=== PATIENT | female | born 1995 | race Caucasian/White ===

== ENCOUNTER 2017-06-03 21:25 | Emergency (ER) | payer BC ==
[2017-06-03] MEDS ORDERED: Benzocaine 20% Topical Spray UD MUCMEM ONE (21:51)
[2017-06-03] MEDS ORDERED: Lidocaine 2% Viscous Solution 15 ML Cup PO ONE (21:51)
--- NOTE | 2017-06-03 21:51 | EDM.PDOC ---
ED HPI GENERAL MEDICAL PROBLEM - General Chief Complaint: ENT Problem Stated Complaint: TOOTH PAIN Time Seen by Provider: 06/03/17 21:40 Source of Information: Reports: Patient History Limitations: Reports: No Limitations - History of Present Illness INITIAL COMMENTS - FREE TEXT/NARRATIVE: HISTORY AND PHYSICAL: History of present illness: [Patient comes to the emergency room complaining of pain to tooth #16. Has a history of multiple fillings to this tooth which have always fallen off. Over the past week she's developed pain to the gums surrounding this tooth, increased to sensitivity to heat and cold, and pain shooting into her left ear and cheek. She has not had any pain relief with Tylenol or ibuprofen. She is scheduled to see a dentist in [place] on June 09. She is 12 weeks . No fever or chills. She has not had any recent illness or infection. No runny nose sore throat or cough. No abdominal pain, nausea or vomiting. She has no other complaints or concerns at this time. Review of systems: As per history of present illness and below otherwise all systems reviewed and negative. Past medical history: As per history of present illness and as reviewed below otherwise noncontributory. Surgical history: As per history of present illness and as reviewed below otherwise noncontributory. Social history: No reported history of drug or alcohol abuse. Family history: As per history of present illness and as reviewed below otherwise noncontributory. Physical exam: HEENT: Atraumatic, normocephalic. TMs are pearly mata and without erythema bilaterally. PERRLA. Nares are clear. Oral mucous membranes are pink and moist. No tonsillar swelling erythema or exudate. Tooth #16 shows no fillings. Decay and plaque present to all teeth. Surrounding gums and soft tissue are erythematous and tender with palpation. She is tender with palpation over her left cheek and mormonism. Lungs: Clear to auscultation, breath sounds equal bilaterally. Heart: S1S2, regular rate and rhythm. Genitourinary: Deferred. Rectal: Deferred. Extremities: Atraumatic. Neurovascular unremarkable. Neuro: Awake, alert, oriented. Motor and sensory unremarkable throughout. Exam nonfocal. Impression: Dental abscess Dental pain] Plan: [Dental balls given to patient. Amoxicillin 500 mg #21 sig 1 by mouth 3 times a day 7 days 0 refills. Follow-up is scheduled with dentist later this week. All questions are answered and concerns are addressed. Patient is in agreement with today's plan.] Definitive disposition and diagnosis as appropriate pending reevaluation and review of above. dental pain Pain Score (Numeric/FACES): 6 - Related Data Allergies Allergy/AdvReac Type Severity Reaction Status Date / Time latex Allergy Rash Verified 06/03/17 21:35 Home Meds: Home Meds Vit No.129/Iron/FA [ One Daily Tablet] 1 tab PO DAILY 06/03/17 [History] Past Medical History HEENT History: Reports: None Cardiovascular History: Reports: None Respiratory History: Reports: None Gastrointestinal History: Reports: None Genitourinary History: Reports: None CULINARY CHEF History: Reports: Musculoskeletal History: Reports: None Neurological History: Reports: None Psychiatric History: Reports: None Endocrine/Metabolic History: Reports: None Hematologic History: Reports: None Immunologic History: Reports: None Oncologic (Cancer) History: Reports: None Dermatologic History: Reports: None - Infectious Disease History Infectious Disease History: Reports: Chicken Pox - Past Surgical History Head Surgeries/Procedures: Reports: None Female Surgical History: Reports: Section Neurological Surgical History: Reports: Other (See Below) Other Neurological Surgeries/Procedures: spinal sx Social & Family History - Family History Family Medical History: Noncontributory - Tobacco Use Smoking Status *Q: Current Every Day Smoker Years of Tobacco use: 4 Packs/Tins Daily: 0.5 - Caffeine Use Caffeine Use: Reports: Coffee, Soda - Recreational Drug Use Recreational Drug Use: No ED ROS ENT - Review of Systems Review Of Systems: ROS reveals no pertinent complaints other than HPI. ED EXAM, ENT - Physical Exam Exam: See Below Course - Vital Signs Last Recorded V/S: Last Vital Signs Temp 97 F 06/03/17 21:35 Pulse 85 06/03/17 22:00 Resp 18 06/03/17 22:00 BP 119/67 06/03/17 22:00 Pulse Ox 97 06/03/17 22:00 - Orders/Labs/Meds Meds: Medications Discontinued Medications Generic Name Dose Route Start Last Admin Trade Name Freq PRN Reason Stop Dose Admin Benzocaine 2 each 06/03/17 21:51 06/03/17 22:03 Hurricaine One 20% MUCMEM 06/03/17 21:52 2 each ONETIME ONE Administration Lidocaine HCl 15 ml 06/03/17 21:51 06/03/17 22:03 Xylocaine 2% Viscous PO 06/03/17 21:52 15 ml ONETIME ONE Administration Departure - Departure Time of Disposition: 22:00 Disposition: Home, Self-Care 01 Condition: Good Clinical Impression: Pain, dental - Discharge Information Instructions: Dental Care and Dentist Visits, Dental Caries Referrals: Marilin Vyas MD [Primary Care Provider] - Forms: ED Department Discharge Additional Instructions: The following information is given to patients seen in the emergency department who are being discharged to home. This information is to outline your options for follow-up care. We provide all patients seen in our emergency department with a follow-up referral. The need for follow-up, as well as the timing and circumstances, are variable depending upon the specifics of your emergency department visit. If you don't have a primary care physician on staff, we will provide you with a referral. We always advise you to contact your personal physician following an emergency department visit to inform them of the circumstance of the visit and for follow-up with them and/or the need for any referrals to a consulting specialist. The emergency department will also refer you to a specialist when appropriate. This referral assures that you have the opportunity for follow-up care with a specialist. All of these measure are taken in an effort to provide you with optimal care, which includes your follow-up. Under all circumstances we always encourage you to contact your private physician who remains a resource for coordinating your care. When calling for follow-up care, please make the office aware that this follow-up is from your recent emergency room visit. If for any reason you are refused follow-up, please contact the [facility] emergency department at and asked to speak to the emergency department charge nurse. [facility] [address] [place] [id number] Follow-up with dentist as you have scheduled for later this week. Use dental balls as prescribed. Take antibiotics as prescribed. Return to ER as needed as discussed.
== END 2017-06-03 22:05 | disposition home or self-care (01) ==
LOC: MW.ED 21:25
DX: K04.7 Periapical abscess without sinus (principal); Z91.040 Latex allergy status
CPT/HCPCS: 99282; A9270

== ENCOUNTER 2017-12-13 05:14 | Inpatient (IN) | payer BC ==
[2017-12-13] MEDS ORDERED: Water For Irrigation,Sterile 1,000 ML Container IRR PRN (05:38)
[2017-12-13] MEDS ORDERED: Sodium Chloride 0.9% 10 ML Syringe FLUSH PRN (05:38)
[2017-12-13] MEDS ORDERED: Carboprost Tromethamine 250 MCG/1 ML Amp IM PRN (05:38)
[2017-12-13] MEDS ORDERED: Tranexamic Acid 1,000 MG in Sodium Chloride 0.9% 100 ML IV PRN (05:38)
[2017-12-13] MEDS ORDERED: Misoprostol 200 MCG Tab PO PRN (05:38)
[2017-12-13] MEDS ORDERED: Methylergonovine 0.2 MG/1 ML Amp IM PRN (05:38)
[2017-12-13] MEDS ORDERED: Sodium Chloride 0.9% 2.5 ML Syringe FLUSH PRN (05:38)
[2017-12-13] MEDS ORDERED: Lactated Ringers 1,000 ML IV SCH ×3 (05:45→09:00)
[2017-12-13] MEDS ORDERED: Oxytocin/0.9 % Sodium Chloride 30 UNIT/500 ML BAG IV SCH (05:45)
[2017-12-13] MEDS ORDERED: Oxytocin/0.9 % Sodium Chloride 30 UNIT/500 ML BAG ONE (07:17)
--- NOTE | 2017-12-13 07:28 | PCM.PREANE ---
Preanesthetic Assessment - Anesthesia/Transfusion/Family Hx Anesthesia History: Prior Anesthesia Without Reaction (prior [place] for d/ t thrombocytopenia) Family History of Anesthesia Reaction: No Transfusion History: Prior Transfusion Without Reaction Intubation History: Unknown - Review of Systems General: No Symptoms Pulmonary: No Symptoms Cardiovascular: No Symptoms Gastrointestinal: Other (GERD - pt states is bad this AM, will use bicitra prior to surgery) Neurological: No Symptoms Other: Reports: None - Physical Assessment NPO Status Date: 12/13/17 NPO Status Time: 00:00 Blood Pressure: 105/53 Height: 5 ft 1 in Weight: 180 lb ASA Class: 2 Thyro-Mental Finger Breadths: 3 Mouth Opening Finger Breadths: 2 ROM/Head Extension: Full Lungs: Clear to Auscultation, Normal Respiratory Effort Cardiovascular: Regular Rate, Regular Rhythm - Lab Values: Laboratory Last Values WBC 12.14 K/uL (4.0-11.0) H 12/12/17 12:25 RBC 3.96 M/uL (4.30-5.90) L 12/12/17 12:25 Hgb 11.6 g/dL (12.0-16.0) L 12/12/17 12:25 Hct 34.8 % (36.0-46.0) L 12/12/17 12:25 MCV 87.9 fL (80.0-98.0) 12/12/17 12:25 MCH 29.3 pg (27.0-32.0) 12/12/17 12:25 MCHC 33.3 g/dL (31.0-37.0) 12/12/17 12:25 RDW Std Deviation 48.8 fl (28.0-62.0) 12/12/17 12:25 RDW Coeff of Lyndsay 16 % (11.0-15.0) H 12/12/17 12:25 Plt Count 240 K/uL (150-400) 12/12/17 12:25 MPV 10.40 fL (7.40-12.00) 12/12/17 12:25 Nucleated RBC % 0.0 /100WBC 12/12/17 12:25 Nucleated RBCs # 0 K/uL 12/12/17 12:25 Blood Type O POSITIVE 12/12/17 12:25 Antibody Screen NEGATIVE 12/12/17 12:25 - Allergies Allergies/Adverse Reactions: Allergies Allergy/AdvReac Type Severity Reaction Status Date / Time latex Allergy Rash Verified 12/08/17 08:14 - Blood Blood Available: No Product(s) Available: None (pt T&S) - Anesthesia Plan Free Text/Narrative:: Plan to attempt SAB, but pt understands that d/t her hardware at L5-tailbone that she states has "fallen apart" and needs to be redone after . Pt understands that she may have to go to sleep if unable to obtain spinal, or it isn't effective. Pre-Op Medication Ordered: Antacids - Acknowledgements Anesthesia Type Planned: Spinal (with backup GA) Pt an Appropriate Candidate for the Planned Anesthesia: Yes Alternatives and Risks of Anesthesia Discussed w Pt/Guardian: Yes Pt/Guardian Understands and Agrees with Anesthesia Plan: Yes PreAnesthesia Questionnaire - Past Health History Medical/Surgical History: Denies Medical/Surgical History HEENT History: Reports: None Cardiovascular History: Reports: None Respiratory History: Reports: None Gastrointestinal History: Reports: Other (See Below) Other Gastrointestinal History: heartburn during - pt states is "bad" this AM Genitourinary History: Reports: None [employer]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 History: Reports: Musculoskeletal History: Reports: Back Pain, Chronic (had back pain since she was in 3rd grade and finally had hardware placed L5-Sacrum in 2013 which she said helped, but has now "fallen apart" and needs to be redone) Neurological History: Reports: None Psychiatric History: Reports: None Endocrine/Metabolic History: Reports: None Hematologic History: Reports: Idiopathic Thrombocytopenia (with last ) , Other (See Below) Other Hematologic History: states had platelet infusion 2 yrs ago after 1st C/ Section Immunologic History: Reports: None Oncologic (Cancer) History: Reports: None Dermatologic History: Reports: None - Infectious Disease History Infectious Disease History: Reports: Chicken Pox - Past Surgical History Head Surgeries/Procedures: Reports: None Female Surgical History: Reports: Section (under [place] d/t thrombocytopenia) Neurological Surgical History: Reports: Lumbar Spine, Other (See Below) Other Neurological Surgeries/Procedures: hx back surgery - SUBSTANCE USE Smoking Status *Q: Current Every Day Smoker Tobacco Use Within Last Twelve Months: Cigarettes Recreational Drug Use History: No - HOME MEDS Home Medications: Home Meds Vit No.129/Iron/FA [ One Daily Tablet] 1 tab PO DAILY 06/03/17 [History] - CURRENT (IN HOUSE) MEDS Current Meds: Current Medications Carboprost Tromethamine (Hemabate Ds) 250 mcg IM ASDIRECTED PRN PRN Reason: Post Hemorrhage Citric Acid/Sodium Citrate (Bicitra Solution) 30 ml PO .ONCE ROBIN Cefazolin Sodium/Dextrose 2 gm (/ Premix) 50 mls @ 100 mls/hr IV ONETIME ONE Stop: 12/13/17 07:59 Lactated Ringer's (Ringers, Lactated) 1,000 mls @ 500 mls/hr IV .BOLUS ROBIN Last Admin: 12/13/17 05:54 Dose: 500 mls/hr Lactated Ringer's (Ringers, Lactated) 1,000 mls @ 150 mls/hr IV ASDIRECTED ROBIN Oxytocin/Sodium Chloride (Oxytocin 30 Unit/500 Ml-Ns) 30 unit in 500 mls @ 250 mls/hr IV TITRATE ROBIN Tranexamic Acid 1,000 mg/ (Sodium Chloride) 110 mls @ 660 mls/hr IV ONETIME PRN PRN Reason: Bleeding Methylergonovine Maleate (Methergine) 0.2 mg IM ASDIRECTED PRN PRN Reason: Post Hemorrhage Misoprostol (Cytotec) 200 mcg PO .ONCE PRN PRN Reason: Post Hemorrhage Sodium Chloride (Saline Flush) 10 ml FLUSH ASDIRECTED PRN PRN Reason: Keep Vein Open Sodium Chloride (Saline Flush) 2.5 ml FLUSH ASDIRECTED PRN PRN Reason: Keep Vein Open Sterile Water (Sterile Water For Irrigation) 1,000 ml IRR ASDIRECTED PRN PRN Reason: delivery Discontinued Medications Oxytocin/Sodium Chloride (Oxytocin 30 Unit/500 Ml-Ns) Confirm Administered Dose 30 unit in 500 mls @ as directed .ROUTE .STK-MED ONE Stop: 12/13/17 07:18
[2017-12-13] MEDS ORDERED: ceFAZolin 2 GM in Premix Bag 1 BAG IV ONE (07:30)
[2017-12-13] MEDS ORDERED: Citric Acid/Sodium Citrate Solution 30 ML Cup PO SCH (07:30)
[2017-12-13] MEDS ORDERED: ePHEDrine 50 MG/ML SDV ONE (07:36)
[2017-12-13] MEDS ORDERED: Morphine PF 1 MG/ML Amp ONE (07:36)
[2017-12-13] MEDS ORDERED: ceFAZolin/Dextrose,Iso-Osmotic 2 GM/50 ML Duplex Bag IV ONE (07:36)
[2017-12-13] MEDS ORDERED: Ondansetron 4 MG/2 ML SDV ONE (08:31)
[2017-12-13] MEDS ORDERED: Phenylephrine/Normal Saline 100 MCG/ML 10 ML Syringe ONE (08:45)
[2017-12-13] MEDS ORDERED: Octyl 2-Cyanoacrylate 1 Tube ONE (08:48)
[2017-12-13] MEDS ORDERED: Acetaminophen/oxyCODONE 325-5 MG Tab PO PRN ×2 (08:56→09:08)
[2017-12-13] MEDS ORDERED: Ondansetron 4 MG/2 ML SDV IV PRN (08:56)
[2017-12-13] MEDS ORDERED: Bisacodyl 10 MG Supp RECTAL PRN (08:56)
[2017-12-13] MEDS ORDERED: Lanolin 100% Cream 7 GM Tube TOP PRN (08:56)
[2017-12-13] MEDS ORDERED: diphenhydrAMINE 50 MG/ML SDV IVPUSH PRN (08:56)
--- NOTE | 2017-12-13 09:04 | PCM.OPNOTE ---
- General Post-Op/Procedure Note Date of Surgery/Procedure: 12/13/17 Operative Procedure(s): Repeat LTCS Findings: Term female APGARs 8, 9 weight 3450 gm. Intact placenta with 3V cord Pre Op Diagnosis: 39 week IUP. Previous c section, desires repeat Post-Op Diagnosis: Same Anesthesia Technique: Spinal Primary Surgeon: Marilin Vyas Fluid Replacement, Intraop: 2,000 EBL in mLs: 400 Complications: none known Condition: Good Free Text/Narrative:: Dictation [id number]
[2017-12-13] MEDS ORDERED: Nalbuphine 10 MG/ML 10 ML MDV IVPUSH PRN (09:08)
[2017-12-13] MEDS ORDERED: Naloxone 0.4 MG/ML Syringe IVPUSH PRN (09:08)
[2017-12-13] MEDS: Ketorolac 30 MG/ML SDV IVPUSH SCH ×3 (09:21→20:38)
--- NOTE | 2017-12-13 10:10 | PCM.POSTAN ---
POST ANESTHESIA ASSESSMENT - MENTAL STATUS Mental Status: Alert, Oriented - RESPIRATORY Respiratory Status: Respiratory Rate WNL, Airway Patent, O2 Saturation Stable - CARDIOVASCULAR CV Status: Pulse Rate WNL, Blood Pressure Stable - GASTROINTESTINAL GI Status: No Symptoms - POST OP HYDRATION Hydration Status: Adequate & Stable - OBSERVATIONS Free Text/Narrative:: sensory level t12
[2017-12-13] MEDS: Docusate Sodium 100 MG Cap PO SCH ×2 (10:29→20:38)
--- NOTE | 2017-12-13 13:37 | OR ---
SURGEON: Marilin Vyas M.D. DATE OF PROCEDURE: 12/13/2017 PREOPERATIVE DIAGNOSES: 1. 39-week intrauterine . 2. Previous section, desires repeat. POSTOPERATIVE DIAGNOSES: 1. 39-week intrauterine . 2. Previous section, desires repeat. PROCEDURE: Repeat low-transverse section. ESTIMATED BLOOD LOSS: 400 mL. ANESTHESIA: Spinal. FLUIDS: 2000 mL of crystalloid. COMPLICATIONS: None. FINDINGS: Viable female, score 8 at 1 minute and 9 at 5 minutes, weight is 3450 g. Spontaneous delivery, intact placenta with three-vessel cord. Normal-appearing pelvis. DISPOSITION: The patient to PACU. to nursery, stable. PROCEDURE IN DETAIL: The patient is a 22-year-old G2, P1, at 39 weeks gestation, who presents for scheduled repeat delivery. Risks of the procedure have been discussed and proper consent obtained. The patient was taken to the operating where she underwent spinal anesthetic, was placed in the supine position with leftward tilt. SCDs to lower extremities. [place] to gravity. She was prepped and draped in the usual sterile fashion. Received Ancef prophylactically. Time-out was performed. Anesthesia was tested found to be adequate. Previous Pfannenstiel scar was now excised. Subcutaneous tissue was incised down to the level of the fascia, which was incised in midline, lateralized on either side sharply and bluntly. The superior aspect of fascia was tented upward, dissected sharply and bluntly away from underlying muscle. In the similar aspect, performed with inferior aspect of fascia. Rectus muscles were in midline. Peritoneum was entered sharply. Rectus muscles and peritoneum were now lateralized bluntly. Uterine position and position were palpated. Self-retaining retractor was gently placed. Uterovesical reflection was visualized and the bladder flap was created sharply and bluntly. Bladder was mobilized away from lower uterine segment. Low transverse hysterotomy was now performed. Uterine cavity was entered with a blunt end scalpel. Clear fluid was returned with amniotomy. The 's head was flexed, delivered from the pelvis. Fundal pressure was applied. The infant's head was delivered followed by anterior shoulder, posterior shoulder, and remaining body without difficulty. Nuchal cord x1 was reduced manually. The 's oropharynx and nares were bulb suctioned. Cord was clamped x2 and cut. was handed off to attending nursing staff. Cord arterial, cord venous, cord blood samples obtained. The placenta was now delivered. Uterine cavity was cleared of all clot and debris. The hysterotomy was repaired using 0 Vicryl in continuous running locked fashion followed by a re-imbricating layer. Any areas of oozing were cauterized. Posterior aspect of uterus inspected, no defects or hematomas found to be forming. Regions were well irrigated and suction dried. Uterus was returned to the abdominal cavity. Colonic gutters were cleared of all clot and debris, well irrigated and suction dried. Hysterotomy was again inspected and found to be hemostatic. Rectus muscles were reapproximated using 0 Vicryl in inverted mattress suture technique. Anterior aspect of the muscle, posterior aspect of the fascia were closely inspected. Any areas of oozing were cauterized. The rectus fascia was reapproximated using 0 Vicryl in continuous running fashion beginning laterally and tied in the midline. Subcutaneous tissue was well irrigated and suction dried. Any areas of oozing were cauterized. The skin edges were reapproximated using 3-0 Vicryl in a Josue needle in subcuticular fashion followed by Dermabond. Sponge, instrument, needle counts were correct x2. The uterus remained firm. Hemostasis evident. The patient will go to PACU in stable condition. Infant to nursery. BALAJI / ROGER /[id number]
[2017-12-14] MEDS: Ketorolac 30 MG/ML SDV IVPUSH SCH ×2 (02:44→09:18)
--- NOTE | 2017-12-14 06:08 | PCM.SURGPN ---
- General Info Date of Service: 12/14/17 POD#: 1 Functional Status: Reports: Pain Controlled, Tolerating Diet, Ambulating, Urinating - Review of Systems General: Denies: Fever, Weakness Pulmonary: Denies: Shortness of Breath Cardiovascular: Denies: Chest Pain, Palpitations, Lightheadedness Gastrointestinal: Denies: Abdominal Pain, Nausea, Vomiting Genitourinary: Denies: Flank Pain Psychiatric: Reports: No Symptoms - Patient Data Vitals - Most Recent: Last Vital Signs Temp 36.6 C 12/14/17 05:00 Pulse 102 H 12/14/17 05:00 Resp 18 12/14/17 05:00 BP 106/52 L 12/14/17 05:00 Pulse Ox 96 12/14/17 05:00 Weight - Most Recent: 81.647 kg I&O - Last 24 Hours: Intake & Output 12/13/17 12/13/17 12/14/17 14:59 22:59 06:59 Intake Total 4600 1721 1500 Output Total 335 1200 2120 Balance 4265 521 -620 Lab Results Last 24 Hrs: Laboratory Results - last 24 hr 12/13/17 12/14/17 Range/Units 08:25 04:53 Hgb 10.2 L (12.0-16.0) g/dL Hct 31.5 L (36.0-46.0) % Cord ABG pH 7.267 (7.18-7.38) Cord ABG Base Excess -3 (-10--2) Cord VBG pH 7.355 (7.25-7.45) Cord VBG Base Excess -3 (-10--2) Med Orders - Current: Current Medications Bisacodyl (Dulcolax) 10 mg RECTAL .ONCE PRN PRN Reason: Constipation Carboprost Tromethamine (Hemabate Ds) 250 mcg IM ASDIRECTED PRN PRN Reason: Post Hemorrhage Citric Acid/Sodium Citrate (Bicitra Solution) 30 ml PO .ONCE ROBIN Diphenhydramine HCl (Benadryl) 25 mg IVPUSH Q6H PRN PRN Reason: Itching or Nausea Docusate Sodium (Colace) 100 mg PO BID ROBIN Last Admin: 12/13/17 20:38 Dose: 100 mg Emollient Ointment (Lansinoh Hpa) 0 gm TOP ASDIRECTED PRN PRN Reason: Sore Nipples Lactated Ringer's (Ringers, Lactated) 1,000 mls @ 500 mls/hr IV .BOLUS [facility] Last Admin: 12/13/17 05:54 Dose: 500 mls/hr Lactated Ringer's (Ringers, Lactated) 1,000 mls @ 150 mls/hr IV ASDIRECTED [facility] Oxytocin/Sodium Chloride (Oxytocin 30 Unit/500 Ml-Ns) 30 unit in 500 mls @ 250 mls/hr IV TITRATE [facility] Tranexamic Acid 1,000 mg/ (Sodium Chloride) 110 mls @ 660 mls/hr IV ONETIME PRN PRN Reason: Bleeding Lactated Ringer's (Ringers, Lactated) 1,000 mls @ 125 mls/hr IV ASDIRECTED [facility] Ibuprofen (Motrin) 800 mg PO Q8H PRN PRN Reason: mild pain or fever Ketorolac Tromethamine (Toradol) 30 mg IVPUSH Q6H [facility] Stop: 12/14/17 09:01 Last Admin: 12/14/17 02:44 Dose: 30 mg Methylergonovine Maleate (Methergine) 0.2 mg IM ASDIRECTED PRN PRN Reason: Post Hemorrhage Misoprostol (Cytotec) 200 mcg PO .ONCE PRN PRN Reason: Post Hemorrhage Nalbuphine HCl (Nubain) 2.5 mg IVPUSH Q3H PRN PRN Reason: Pruritis Stop: 12/14/17 09:09 Last Admin: 12/13/17 10:25 Dose: 2.5 mg Naloxone HCl (Narcan) 0.1 mg IVPUSH ONETIME PRN PRN Reason: RR<6 WITH STIMULATION Stop: 12/14/17 09:09 Ondansetron HCl (Zofran) 4 mg IV Q4H PRN PRN Reason: Nausea/Vomiting Oxycodone/Acetaminophen (Percocet 325-5 Mg) 1 tab PO Q4H PRN PRN Reason: Pain (moderate 4-6) Oxycodone/Acetaminophen (Percocet 325-5 Mg) 2 tab PO Q4H PRN PRN Reason: Pain (moderate 4-6) Oxycodone/Acetaminophen (Percocet 325-5 Mg) 1 tab PO .Q4HRS PRN PRN Reason: Breakthrough Pain Sodium Chloride (Saline Flush) 10 ml FLUSH ASDIRECTED PRN PRN Reason: Keep Vein Open Sodium Chloride (Saline Flush) 2.5 ml FLUSH ASDIRECTED PRN PRN Reason: Keep Vein Open Sterile Water (Sterile Water For Irrigation) 1,000 ml IRR ASDIRECTED PRN PRN Reason: delivery Discontinued Medications Cefazolin Sodium/Dextrose (Ancef) Confirm Administered Dose 2 gm IV .STK-MED ONE Stop: 12/13/17 07:37 Ephedrine Sulfate (Ephedrine Sulfate) Confirm Administered Dose 50 mg .ROUTE .STK-MED ONE Stop: 12/13/17 07:37 Cefazolin Sodium/Dextrose 2 gm (/ Premix) 50 mls @ 100 mls/hr IV ONETIME ONE Stop: 12/13/17 07:59 Last Admin: 12/13/17 10:28 Dose: Not Given Oxytocin/Sodium Chloride (Oxytocin 30 Unit/500 Ml-Ns) Confirm Administered Dose 30 unit in 500 mls @ as directed .ROUTE .STK-MED ONE Stop: 12/13/17 07:18 Last Admin: 12/13/17 10:28 Dose: Not Given Morphine Sulfate (Duramorph Pf) Confirm Administered Dose 1 mg .ROUTE .STK-MED ONE Stop: 12/13/17 07:37 Octyl Cyanoacrylate (Dermabond Advance) Confirm Administered Dose 1 applic .ROUTE .STK-MED ONE Stop: 12/13/17 08:49 Ondansetron HCl (Zofran) Confirm Administered Dose 4 mg .ROUTE .STK-MED ONE Stop: 12/13/17 08:32 Phenylephrine HCl (Phenylephrine In Ns 100 Mcg/Ml) Confirm Administered Dose 1 mg .ROUTE .STK-MED ONE Stop: 12/13/17 08:46 - Exam Wound/Incisions: Healing Well, No Drainage. No: Erythema General: Alert, Oriented Lungs: Normal Respiratory Effort Cardiovascular: Regular Rate, Regular Rhythm GI/Abdominal Exam: Normal Bowel Sounds, Soft Extremities: Pedal Edema (trace). No: Israel's Sign Skin: Warm, Dry, Intact Psy/Mental Status: Alert, Normal Affect - Problem List Review Problem List Initiated/Reviewed/Updated: Yes - My Orders Last 24 Hours: Active Orders 24 hr Category Date Time Status Patient Status [ADT] Routine ADT 12/13/17 05:38 Active Patient Status [ADT] Routine ADT 12/13/17 05:38 Active Patient Status [ADT] Routine ADT 12/13/17 08:56 Active Ambulate [RC] PER UNIT ROUTINE Care 12/13/17 08:56 Active Bradycardia-Neuroaxis [employer] [RC] ROUTINE Care 12/13/17 09:08 Active Communication Order [RC] PER UNIT ROUTINE Care 12/13/17 08:56 Active Communication Order [RC] PER UNIT ROUTINE Care 12/13/17 08:56 Active Communication Order [RC] Per Unit Routine Care 12/13/17 08:56 Active Hypertension-Neuroaxis [employer] [RC] ROUTINE Care 12/13/17 09:08 Active Hypotension-Neuroaxis [employer] [RC] ROUTINE Care 12/13/17 09:08 Active May Shower [RC] ASDIRECTED Care 12/13/17 08:56 Active Notify Provider Intake and Out [RC] ASDIRECTED Care 12/13/17 08:56 Active Notify Provider Vital Signs [RC] ASDIRECTED Care 12/13/17 08:56 Active Notify Provider Vital Signs [RC] PRN Care 12/13/17 05:38 Active Notify Provider [RC] PRN Care 12/13/17 05:38 Active Oxygen Therapy [RC] PER UNIT ROUTINE Care 12/13/17 09:08 Active RT Incentive Spirometry [RC] Q2HWA Care 12/13/17 08:56 Active Up ad Naina [RC] ASDIRECTED Care 12/13/17 05:38 Active Vital Signs [RC] PER UNIT ROUTINE Care 12/13/17 08:56 Active Vital Signs [RC] Q1H Care 12/13/17 09:08 Active Regular Diet [DIET] Diet 12/13/17 Dinner Active Acetaminophen/oxyCODONE [Percocet 325-5 MG] Med 12/13/17 09:08 Active 1 tab PO .Q4HRS PRN Acetaminophen/oxyCODONE [Percocet 325-5 MG] Med 12/13/17 08:56 Active 1 tab PO Q4H PRN Acetaminophen/oxyCODONE [Percocet 325-5 MG] Med 12/13/17 08:56 Active 2 tab PO Q4H PRN Bisacodyl [Dulcolax] Med 12/13/17 08:56 Active 10 mg RECTAL .ONCE PRN Carboprost Tromethamine [Hemabate DS] Med 12/13/17 05:38 Active 250 mcg IM ASDIRECTED PRN Citric Acid/Sodium Citrate [Bicitra Solution] Med 12/13/17 07:30 Active 30 ml PO .ONCE Docusate Sodium [Colace] Med 12/13/17 09:00 Active 100 mg PO BID Ibuprofen [Motrin] Med 12/13/17 08:56 Active 800 mg PO Q8H PRN Ketorolac [Toradol] Med 12/13/17 09:00 Active 30 mg IVPUSH Q6H Lactated Ringers [Ringers, Lactated] 1,000 ml Med 12/13/17 05:45 Active IV .BOLUS Lactated Ringers [Ringers, Lactated] 1,000 ml Med 12/13/17 05:45 Active IV ASDIRECTED Lactated Ringers [Ringers, Lactated] 1,000 ml Med 12/13/17 09:00 Active IV ASDIRECTED Lanolin [Lansinoh HPA] Med 12/13/17 08:56 Active See Dose Instructions TOP ASDIRECTED PRN Methylergonovine [Methergine] Med 12/13/17 05:38 Active 0.2 mg IM ASDIRECTED PRN Misoprostol [Cytotec] Med 12/13/17 05:38 Active 200 mcg PO .ONCE PRN Nalbuphine [Nubain] Med 12/13/17 09:08 Active 2.5 mg IVPUSH Q3H PRN Naloxone [Narcan] Med 12/13/17 09:08 Active 0.1 mg IVPUSH ONETIME PRN Ondansetron [Zofran] Med 12/13/17 08:56 Active 4 mg IV Q4H PRN Oxytocin/0.9 % Sodium Chloride [Oxytocin 30 Unit/500 ML Med 12/13/17 05:45 Active -NS] 30 unit in 500 ml IV TITRATE Sodium Chloride 0.9% [Saline Flush] Med 12/13/17 05:38 Active 10 ml FLUSH ASDIRECTED PRN Sodium Chloride 0.9% [Saline Flush] Med 12/13/17 05:38 Active 2.5 ml FLUSH ASDIRECTED PRN Tranexamic Acid [Cyklokapron] 1,000 mg Med 12/13/17 05:38 Active Sodium Chloride 0.9% [Normal Saline] 100 ml IV ONETIME Water For Irrigation,Sterile [Sterile Water for Med 12/13/17 05:38 Active Irrigation] 1,000 ml IRR ASDIRECTED PRN diphenhydrAMINE [Benadryl] Med 12/13/17 08:56 Active 25 mg IVPUSH Q6H PRN AN Neuroaxis [employer] Precaution Reflex [OM.PC] PER Ot 12/13/17 09:15 Ordered UNIT ROUTINE AN Neuroaxis [employer] Precaution Reflex [OM.PC] PER Ot 12/14/17 09:15 Ordered UNIT ROUTINE Abdominal Binder [OM.PC] Routine Ot 12/13/17 08:56 Ordered Assess Lochia [WOMSER] Per Unit Routine Ot 12/13/17 08:56 Ordered Assess Uterine Involution [WOMSER] Per Unit Routine Ot 12/13/17 08:56 Ordered Breast Pump [WOMSER] Per Unit Routine Ot 12/13/17 08:56 Ordered Scalp Electrode [WOMSER] Per Unit Routine Ot 12/13/17 05:38 Ordered Heat Therapy [OM.PC] Routine Ot 12/13/17 08:56 Ordered Ice Therapy [OM.PC] Routine Ot 12/13/17 08:56 Ordered Peripheral IV Discontinue [OM.PC] Routine Ot 12/13/17 08:56 Ordered Peripheral IV Insertion Adult [OM.PC] Routine Ot 12/13/17 05:38 Ordered Peripheral IV Insertion Adult [OM.PC] Routine Ot 12/13/17 05:38 Ordered Schedule Procedure [COMM] Per Unit Routine Ot 12/13/17 05:38 Ordered Sequential Compression Device [OM.PC] Per Unit Routine Ot 12/13/17 08:56 Ordered Resuscitation Status Routine Resus Stat 12/13/17 05:38 Ordered Medication Orders Bisacodyl (Dulcolax) 10 mg RECTAL .ONCE PRN PRN Reason: Constipation Carboprost Tromethamine (Hemabate Ds) 250 mcg IM ASDIRECTED PRN PRN Reason: Post Hemorrhage Citric Acid/Sodium Citrate (Bicitra Solution) 30 ml PO .ONCE ROBIN Diphenhydramine HCl (Benadryl) 25 mg IVPUSH Q6H PRN PRN Reason: Itching or Nausea Docusate Sodium (Colace) 100 mg PO BID [facility] Last Admin: 12/13/17 20:38 Dose: 100 mg Admin: 12/13/17 10:29 Dose: Emollient Ointment (Lansinoh Hpa) 0 gm TOP ASDIRECTED PRN PRN Reason: Sore Nipples Lactated Ringer's (Ringers, Lactated) 1,000 mls @ 500 mls/hr IV .BOLUS [facility] Last Admin: 12/13/17 05:54 Dose: 500 mls/hr Lactated Ringer's (Ringers, Lactated) 1,000 mls @ 150 mls/hr IV ASDIRECTED [facility] Oxytocin/Sodium Chloride (Oxytocin 30 Unit/500 Ml-Ns) 30 unit in 500 mls @ 250 mls/hr IV TITRATE [facility] Tranexamic Acid 1,000 mg/ (Sodium Chloride) 110 mls @ 660 mls/hr IV ONETIME PRN PRN Reason: Bleeding Lactated Ringer's (Ringers, Lactated) 1,000 mls @ 125 mls/hr IV ASDIRECTED [facility] Ibuprofen (Motrin) 800 mg PO Q8H PRN PRN Reason: mild pain or fever Ketorolac Tromethamine (Toradol) 30 mg IVPUSH Q6H [facility] Stop: 12/14/17 09:01 Last Admin: 12/14/17 02:44 Dose: 30 mg Admin: 12/13/17 20:38 Dose: 30 mg Admin: 12/13/17 14:58 Dose: 30 mg Admin: 12/13/17 09:21 Dose: 30 mg Methylergonovine Maleate (Methergine) 0.2 mg IM ASDIRECTED PRN PRN Reason: Post Hemorrhage Misoprostol (Cytotec) 200 mcg PO .ONCE PRN PRN Reason: Post Hemorrhage Nalbuphine HCl (Nubain) 2.5 mg IVPUSH Q3H PRN PRN Reason: Pruritis Stop: 12/14/17 09:09 Last Admin: 12/13/17 10:25 Dose: 2.5 mg Naloxone HCl (Narcan) 0.1 mg IVPUSH ONETIME PRN PRN Reason: RR<6 WITH STIMULATION Stop: 12/14/17 09:09 Ondansetron HCl (Zofran) 4 mg IV Q4H PRN PRN Reason: Nausea/Vomiting Oxycodone/Acetaminophen (Percocet 325-5 Mg) 1 tab PO Q4H PRN PRN Reason: Pain (moderate 4-6) Oxycodone/Acetaminophen (Percocet 325-5 Mg) 2 tab PO Q4H PRN PRN Reason: Pain (moderate 4-6) Oxycodone/Acetaminophen (Percocet 325-5 Mg) 1 tab PO .Q4HRS PRN PRN Reason: Breakthrough Pain Sodium Chloride (Saline Flush) 10 ml FLUSH ASDIRECTED PRN PRN Reason: Keep Vein Open Sodium Chloride (Saline Flush) 2.5 ml FLUSH ASDIRECTED PRN PRN Reason: Keep Vein Open Sterile Water (Sterile Water For Irrigation) 1,000 ml IRR ASDIRECTED PRN PRN Reason: delivery - Assessment Assessment (Free Text/Narrative):: POD 1 status post repeat LTCS - Plan Plan (Free Text/Narrative):: Continue postoperative cares. VS are stable, labs reassuring. Ambulate halls today, may shower. going well.
[2017-12-14] MEDS: Docusate Sodium 100 MG Cap PO SCH ×2 (09:18→21:47)
[2017-12-14] MEDS: Acetaminophen/oxyCODONE 325-5 MG Tab PO PRN ×2 (14:58→21:47)
[2017-12-14] MEDS: Ibuprofen 800 MG Tab PO PRN (14:59)
[2017-12-15] MEDS: Ibuprofen 800 MG Tab PO PRN (02:12)
--- NOTE | 2017-12-15 08:09 | PCM.PNPP ---
<DoreenRobertAna - Last Filed: 12/15/17 08:05> - General Info Date of Service: 12/15/17 Functional Status: Reports: Pain Controlled, Tolerating Diet, Ambulating, Urinating - Review of Systems General: Denies: Fever, Weakness, Fatigue Pulmonary: Denies: Shortness of Breath, Pleuritic Chest Pain, Cough Cardiovascular: Denies: Chest Pain, Palpitations, Dyspnea on Exertion Gastrointestinal: Denies: Abdominal Pain Genitourinary: Denies: Dysuria - General Info Date of Service: 12/15/17 - Patient Data Vital Signs - Most Recent: Last Vital Signs Temp 36.8 C 12/15/17 05:55 Pulse 92 12/15/17 05:55 Resp 18 12/15/17 05:55 BP 107/57 L 12/15/17 05:55 Pulse Ox 96 12/15/17 05:55 Weight - Most Recent: 81.647 kg Med Orders - Current: Current Medications Bisacodyl (Dulcolax) 10 mg RECTAL .ONCE PRN PRN Reason: Constipation Carboprost Tromethamine (Hemabate Ds) 250 mcg IM ASDIRECTED PRN PRN Reason: Post Hemorrhage Citric Acid/Sodium Citrate (Bicitra Solution) 30 ml PO .ONCE ROBIN Diphenhydramine HCl (Benadryl) 25 mg IVPUSH Q6H PRN PRN Reason: Itching or Nausea Docusate Sodium (Colace) 100 mg PO BID [facility] Last Admin: 12/14/17 21:47 Dose: 100 mg Emollient Ointment (Lansinoh Hpa) 0 gm TOP ASDIRECTED PRN PRN Reason: Sore Nipples Lactated Ringer's (Ringers, Lactated) 1,000 mls @ 500 mls/hr IV .BOLUS [facility] Last Admin: 12/13/17 05:54 Dose: 500 mls/hr Lactated Ringer's (Ringers, Lactated) 1,000 mls @ 150 mls/hr IV ASDIRECTED [facility] Oxytocin/Sodium Chloride (Oxytocin 30 Unit/500 Ml-Ns) 30 unit in 500 mls @ 250 mls/hr IV TITRATE [facility] Tranexamic Acid 1,000 mg/ (Sodium Chloride) 110 mls @ 660 mls/hr IV ONETIME PRN PRN Reason: Bleeding Lactated Ringer's (Ringers, Lactated) 1,000 mls @ 125 mls/hr IV ASDIRECTED [facility] Ibuprofen (Motrin) 800 mg PO Q8H PRN PRN Reason: mild pain or fever Last Admin: 12/15/17 02:12 Dose: 800 mg Methylergonovine Maleate (Methergine) 0.2 mg IM ASDIRECTED PRN PRN Reason: Post Hemorrhage Misoprostol (Cytotec) 200 mcg PO .ONCE PRN PRN Reason: Post Hemorrhage Ondansetron HCl (Zofran) 4 mg IV Q4H PRN PRN Reason: Nausea/Vomiting Oxycodone/Acetaminophen (Percocet 325-5 Mg) 1 tab PO Q4H PRN PRN Reason: Pain (moderate 4-6) Last Admin: 12/14/17 21:47 Dose: 1 tab Oxycodone/Acetaminophen (Percocet 325-5 Mg) 2 tab PO Q4H PRN PRN Reason: Pain (moderate 4-6) Oxycodone/Acetaminophen (Percocet 325-5 Mg) 1 tab PO .Q4HRS PRN PRN Reason: Breakthrough Pain Sodium Chloride (Saline Flush) 10 ml FLUSH ASDIRECTED PRN PRN Reason: Keep Vein Open Sodium Chloride (Saline Flush) 2.5 ml FLUSH ASDIRECTED PRN PRN Reason: Keep Vein Open Sterile Water (Sterile Water For Irrigation) 1,000 ml IRR ASDIRECTED PRN PRN Reason: delivery Discontinued Medications Cefazolin Sodium/Dextrose (Ancef) Confirm Administered Dose 2 gm IV .STK-MED ONE Stop: 12/13/17 07:37 Ephedrine Sulfate (Ephedrine Sulfate) Confirm Administered Dose 50 mg .ROUTE .STK-MED ONE Stop: 12/13/17 07:37 Cefazolin Sodium/Dextrose 2 gm (/ Premix) 50 mls @ 100 mls/hr IV ONETIME ONE Stop: 12/13/17 07:59 Last Admin: 12/13/17 10:28 Dose: Not Given Oxytocin/Sodium Chloride (Oxytocin 30 Unit/500 Ml-Ns) Confirm Administered Dose 30 unit in 500 mls @ as directed .ROUTE .STK-MED ONE Stop: 12/13/17 07:18 Last Admin: 12/13/17 10:28 Dose: Not Given Ketorolac Tromethamine (Toradol) 30 mg IVPUSH Q6H ROBIN Stop: 12/14/17 09:01 Last Admin: 12/14/17 09:18 Dose: 30 mg Morphine Sulfate (Duramorph Pf) Confirm Administered Dose 1 mg .ROUTE .STK-MED ONE Stop: 12/13/17 07:37 Nalbuphine HCl (Nubain) 2.5 mg IVPUSH Q3H PRN PRN Reason: Pruritis Stop: 12/14/17 09:09 Last Admin: 12/13/17 10:25 Dose: 2.5 mg Naloxone HCl (Narcan) 0.1 mg IVPUSH ONETIME PRN PRN Reason: RR<6 WITH STIMULATION Stop: 12/14/17 09:09 Octyl Cyanoacrylate (Dermabond Advance) Confirm Administered Dose 1 applic .ROUTE .STK-MED ONE Stop: 12/13/17 08:49 Ondansetron HCl (Zofran) Confirm Administered Dose 4 mg .ROUTE .STK-MED ONE Stop: 12/13/17 08:32 Phenylephrine HCl (Phenylephrine In Ns 100 Mcg/Ml) Confirm Administered Dose 1 mg .ROUTE .STK-MED ONE Stop: 12/13/17 08:46 - Interaction Infant Disposition, : [place] in Room with Family Interaction: Holding Infant Feeding: Attempted ; Nursed Fair/Poor Support Person: - Recovery Exam Fundal Tone: Firm Fundal Level: 1 Fingerbreadths Below Umbilicus Fundal Placement: Midline Lochia Amount: Scant Lochia Color: Rubra/Red Perineum Description: Intact, Minimal Bruising/Swelling Episiotomy/Laceration: None Bladder Status: Voiding Urinary Elimination: Voided - Exam General: Alert, Oriented Neck: Supple Lungs: Clear to Auscultation, Normal Respiratory Effort Cardiovascular: Regular Rate, Regular Rhythm GI/Abdominal Exam: Normal Bowel Sounds, Soft, Non-Tender, No Distention Extremities: Normal Inspection, Non-Tender (trace), Normal Capillary Refill, Pedal Edema (trace) Skin: Warm, Dry, Intact Psy/Mental Status: Alert - Problem List Review Problem List Initiated/Reviewed/Updated: Yes - Assessment Assessment:: POD#2 from RTLCS. Minimal pain and lochia. Breast fed . Discharge home today. - Plan Plan:: Discharge instructions reviewed. Pelvic rest for 6 weeks. Continue PNV while breast feeding. Rx for Percocet to use as needed for pain. No lifting greater than 15lbs. Instructed patient to call if she develops fever greater than 101 or bleeding through a large pad an hour. F/U with [facility] in 2 and 6 weeks. <Marilin Vyas R - Last Filed: 12/15/17 08:55> - Patient Data Vital Signs - Most Recent: Last Vital Signs Temp 36.8 C 12/15/17 08:26 Pulse 98 12/15/17 08:26 Resp 18 12/15/17 08:26 BP 114/57 L 12/15/17 08:26 Pulse Ox 94 L 12/15/17 08:26 Med Orders - Current: Current Medications Bisacodyl (Dulcolax) 10 mg RECTAL .ONCE PRN PRN Reason: Constipation Carboprost Tromethamine (Hemabate Ds) 250 mcg IM ASDIRECTED PRN PRN Reason: Post Hemorrhage Citric Acid/Sodium Citrate (Bicitra Solution) 30 ml PO .ONCE ROBIN Diphenhydramine HCl (Benadryl) 25 mg IVPUSH Q6H PRN PRN Reason: Itching or Nausea Docusate Sodium (Colace) 100 mg PO BID [facility] Last Admin: 12/14/17 21:47 Dose: 100 mg Emollient Ointment (Lansinoh Hpa) 0 gm TOP ASDIRECTED PRN PRN Reason: Sore Nipples Lactated Ringer's (Ringers, Lactated) 1,000 mls @ 500 mls/hr IV .BOLUS [facility] Last Admin: 12/13/17 05:54 Dose: 500 mls/hr Lactated Ringer's (Ringers, Lactated) 1,000 mls @ 150 mls/hr IV ASDIRECTED [facility] Oxytocin/Sodium Chloride (Oxytocin 30 Unit/500 Ml-Ns) 30 unit in 500 mls @ 250 mls/hr IV TITRATE [facility] Tranexamic Acid 1,000 mg/ (Sodium Chloride) 110 mls @ 660 mls/hr IV ONETIME PRN PRN Reason: Bleeding Lactated Ringer's (Ringers, Lactated) 1,000 mls @ 125 mls/hr IV ASDIRECTED [facility] Ibuprofen (Motrin) 800 mg PO Q8H PRN PRN Reason: mild pain or fever Last Admin: 12/15/17 02:12 Dose: 800 mg Methylergonovine Maleate (Methergine) 0.2 mg IM ASDIRECTED PRN PRN Reason: Post Hemorrhage Misoprostol (Cytotec) 200 mcg PO .ONCE PRN PRN Reason: Post Hemorrhage Ondansetron HCl (Zofran) 4 mg IV Q4H PRN PRN Reason: Nausea/Vomiting Oxycodone/Acetaminophen (Percocet 325-5 Mg) 1 tab PO Q4H PRN PRN Reason: Pain (moderate 4-6) Last Admin: 12/14/17 21:47 Dose: 1 tab Oxycodone/Acetaminophen (Percocet 325-5 Mg) 2 tab PO Q4H PRN PRN Reason: Pain (moderate 4-6) Oxycodone/Acetaminophen (Percocet 325-5 Mg) 1 tab PO .Q4HRS PRN PRN Reason: Breakthrough Pain Sodium Chloride (Saline Flush) 10 ml FLUSH ASDIRECTED PRN PRN Reason: Keep Vein Open Sodium Chloride (Saline Flush) 2.5 ml FLUSH ASDIRECTED PRN PRN Reason: Keep Vein Open Sterile Water (Sterile Water For Irrigation) 1,000 ml IRR ASDIRECTED PRN PRN Reason: delivery Discontinued Medications Cefazolin Sodium/Dextrose (Ancef) Confirm Administered Dose 2 gm IV .STK-MED ONE Stop: 12/13/17 07:37 Ephedrine Sulfate (Ephedrine Sulfate) Confirm Administered Dose 50 mg .ROUTE .STK-MED ONE Stop: 12/13/17 07:37 Cefazolin Sodium/Dextrose 2 gm (/ Premix) 50 mls @ 100 mls/hr IV ONETIME ONE Stop: 12/13/17 07:59 Last Admin: 12/13/17 10:28 Dose: Not Given Oxytocin/Sodium Chloride (Oxytocin 30 Unit/500 Ml-Ns) Confirm Administered Dose 30 unit in 500 mls @ as directed .ROUTE .STK-MED ONE Stop: 12/13/17 07:18 Last Admin: 12/13/17 10:28 Dose: Not Given Ketorolac Tromethamine (Toradol) 30 mg IVPUSH Q6H [facility] Stop: 12/14/17 09:01 Last Admin: 12/14/17 09:18 Dose: 30 mg Morphine Sulfate (Duramorph Pf) Confirm Administered Dose 1 mg .ROUTE .STK-MED ONE Stop: 12/13/17 07:37 Nalbuphine HCl (Nubain) 2.5 mg IVPUSH Q3H PRN PRN Reason: Pruritis Stop: 12/14/17 09:09 Last Admin: 12/13/17 10:25 Dose: 2.5 mg Naloxone HCl (Narcan) 0.1 mg IVPUSH ONETIME PRN PRN Reason: RR<6 WITH STIMULATION Stop: 12/14/17 09:09 Octyl Cyanoacrylate (Dermabond Advance) Confirm Administered Dose 1 applic .ROUTE .STK-MED ONE Stop: 12/13/17 08:49 Ondansetron HCl (Zofran) Confirm Administered Dose 4 mg .ROUTE .STK-MED ONE Stop: 12/13/17 08:32 Phenylephrine HCl (Phenylephrine In Ns 100 Mcg/Ml) Confirm Administered Dose 1 mg .ROUTE .STK-MED ONE Stop: 12/13/17 08:46 - Plan Plan:: Patient seend and examined--discharge to home today.
[2017-12-15] MEDS: Docusate Sodium 100 MG Cap PO SCH (10:45)
[2017-12-15] MEDS: Acetaminophen/oxyCODONE 325-5 MG Tab PO PRN (10:46)
--- NOTE | 2017-12-15 11:51 | PCM48HPAN ---
Post Anesthesia Note - EVALUATION WITHIN 48HRS OF ANESTHETIC Vital Signs in Normal Range: Yes Patient Participated in Evaluation: Yes Respiratory Function Stable: Yes Airway Patent: Yes Cardiovascular Function Stable: Yes Hydration Status Stable: Yes Pain Control Satisfactory: Yes Nausea and Vomiting Control Satisfactory: Yes Mental Status Recovered: Yes Resp Rate: 18 Blood Pressure: 105/53
== END 2017-12-15 11:30 | disposition home or self-care (01) | DRG 540 ==
LOC: MW.OB 05:14
PROVIDERS: ADMIT Obstetrics & Gynecology; ATTEND Obstetrics & Gynecology
PROC: 10D00Z1 Extraction of Products of Conception, Low, Open Approach (ICD-10-PCS; principal; 2017-12-13)
DX: O34.211 Maternal care for low transverse scar from previous cesarean delivery (principal); Z3A.39 39 weeks gestation of pregnancy; Z37.0 Single live birth; Z91.040 Latex allergy status
CPT/HCPCS: 36415; 59025; 82803; 85014; 85018; 85027; 86850; 86900; 86901; A9270-GY; J0690; J1885; J2274; J2300; J2405; J7120

== ENCOUNTER 2021-05-02 14:52 | Emergency (ER) | payer BC, OTHER ==
--- NOTE | 2021-05-02 17:40 | EDM.PDOC ---
ED HPI GENERAL MEDICAL PROBLEM - General Chief Complaint: Respiratory Problem Stated Complaint: COUGH,FEVER Time Seen by Provider: 05/02/21 16:40 Source of Information: Reports: Patient History Limitations: Reports: No Limitations - History of Present Illness INITIAL COMMENTS - FREE TEXT/NARRATIVE: HISTORY AND PHYSICAL: History of present illness: Patient is a 25-year-old female presents emergency room today with concern that she has had cough over the past 4 to 5 days. Patient states that she has been tested for Covid twice and states that is negative but she is concerned that she does have Covid. Patient states over the course of onset of her symptoms, she has had a few episodes of watery diarrhea but states that she has not had any yesterday or today. Patient states that everybody else in her family also has similar symptoms including 3 of her children and her . Patient states that she is concerned that she still may have COVID-19 so came to the emergency room. Patient denies fever, chills, chest pain, shortness of breath. Denies headache, neck stiff ness, change in vision, syncope, or near syncope. Denies nausea, vomiting, abdominal pain, constipation, or dysuria. Has not noted any blood in urine or stool. Patient has been eating and drinking appropriately. Review of systems: As per history of present illness and below otherwise all systems reviewed and negative. Past medical history: As per history of present illness and as reviewed below otherwise noncontributory. Surgical history: As per history of present illness and as reviewed below otherwise noncontributory. Social history: See social history for further information Family history: As per history of present illness and as reviewed below otherwise noncontributory. Physical exam: General: Patient is alert, oriented, and in no acute distress. Patient sitting comfortably on exam table. Vitals stable and reviewed by me. HEENT: Atraumatic, normocephalic, pupils equal and reactive bilaterally, negative for conjunctival pallor or scleral icterus, mucous membranes moist, throat clear, neck supple, nontender, trachea midline. No drooling or trismus noted. No meningeal signs. No hot potato voice noted. Lungs: Clear to auscultation, breath sounds equal bilaterally, chest nontender. Heart: S1S2, regular rate and rhythm without overt murmur Abdomen: Soft, nondistended, nontender. Negative for masses or hepatosplenomegaly. Negative for costovertebral tenderness. Pelvis: Stable nontender. Genitourinary: Deferred. Rectal: Deferred. Skin: Intact, warm, dry. No lesions or rashes noted. Extremities: Atraumatic, negative for cords or calf pain. Neurovascular unremarkable. Neuro: Awake, alert, oriented. Cranial nerves II through XII unremarkable. Cerebellum unremarkable. Motor and sensory unremarkable throughout. Exam nonfocal. Medical Decision Making: Signs and symptoms that were prompt return to the ED thoroughly discussed with patient. Discussed importance for follow-up with a primary care provider. Voices understanding and is agreeable to plan of care. Denies any further questions or concerns at this time. Diagnostics: Covid/influenza Therapeutics: None Prescription: None Impression: Viral syndrome Plan: 1. You can alternate ibuprofen and Tylenol as directed for pain and discomfort. 2. Follow-up with a primary care provider as discussed. Return to the ED as needed and as discussed. Definitive disposition and diagnosis as appropriate pending reevaluation and review of above. - Related Data Allergies Allergy/AdvReac Type Severity Reaction Status Date / Time latex Allergy Rash Verified 12/08/17 08:14 Home Meds: Home Meds Vit No.129/Iron/FA [ One Daily Tablet] 1 tab PO DAILY 06/03/17 [History] Acetaminophen/oxyCODONE [Percocet 325-5 MG] 1 tab PO Q6H PRN #30 tablet 12/15/17 [Rx] Past Medical History - Past Health History Medical/Surgical History: Denies Medical/Surgical History HEENT History: Reports: None Cardiovascular History: Reports: None Respiratory History: Reports: None Gastrointestinal History: Reports: None Other Gastrointestinal History: heartburn during - pt states is "bad" this AM Genitourinary History: Reports: None 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: Musculoskeletal History: Reports: Back Pain, Chronic Neurological History: Reports: None Psychiatric History: Reports: None Endocrine/Metabolic History: Reports: None Hematologic History: Reports: Idiopathic Thrombocytopenia, Other (See Below) Other Hematologic History: states had platelet infusion 2 yrs ago after 1st C/Section Immunologic History: Reports: None Oncologic (Cancer) History: Reports: None Dermatologic History: Reports: None - Infectious Disease History Infectious Disease History: Reports: Chicken Pox - Past Surgical History Head Surgeries/Procedures: Reports: None Female Surgical History: Reports: Section Neurological Surgical History: Reports: Other (See Below) Other Neurological Surgeries/Procedures: spinal sx Social & Family History - Family History Family Medical History: No Pertinent Family History - Tobacco Use Tobacco Use Status *Q: Current Every Day Tobacco User Years of Tobacco use: 5 Packs/Tins Daily: 0.5 - Caffeine Use Caffeine Use: Reports: Energy Drinks - Recreational Drug Use Recreational Drug Use: No ED ROS GENERAL - Review of Systems Review Of Systems: Comprehensive ROS is negative, except as noted in HPI. ED EXAM, GENERAL - Physical Exam Exam: See Below (see dictation) Course - Vital Signs Last Recorded V/S: Last Vital Signs Temp 98.6 F 05/02/21 16:20 Pulse 89 05/02/21 16:20 Resp 16 05/02/21 16:20 BP 133/62 05/02/21 16:20 Pulse Ox 99 05/02/21 16:20 - Orders/Labs/Meds Labs: Laboratory Tests 05/02/21 Range/Units 16:36 Influenza Type A RNA Cancelled Influenza Type B RNA Cancelled SARS-CoV-2 RNA ([facility]) NEGATIVE (NEGATIVE) Departure - Departure Time of Disposition: 18:13 Disposition: Home, Self-Care 01 Clinical Impression: Viral syndrome - Discharge Information Referrals: Josefina Durant DO [Primary Care Provider] - Forms: ED Department Discharge Additional Instructions: The following information is given to patients seen in the emergency department who are being discharged to home. This information is to outline your options for follow-up care. We provide all patients seen in our emergency department with a follow-up referral. The need for follow-up, as well as the timing and circumstances, are variable depending upon the specifics of your emergency department visit. If you don't have a primary care physician on staff, we will provide you with a referral. We always advise you to contact your personal physician following an emergency department visit to inform them of the circumstance of the visit and for follow-up with them and/or the need for any referrals to a consulting specialist. The emergency department will also refer you to a specialist when appropriate. This referral assures that you have the opportunity for follow-up care with a specialist. All of these measure are taken in an effort to provide you with optimal care, which includes your follow-up. Under all circumstances we always encourage you to contact your private physician who remains a resource for coordinating your care. When calling for follow-up care, please make the office aware that this follow-up is from your recent emergency room visit. If for any reason you are refused follow-up, please contact the [facility] Emergency Department at and asked to speak to the emergency department charge nurse. [facility] [address], [place] [address] [facility] [address] [place] [id number] 1. You can alternate ibuprofen and Tylenol as directed for pain and discomfort. 2. Follow-up with a primary care provider as discussed. Return to the ED as needed and as discussed. Sepsis Event Note (ED) - Evaluation Sepsis Screening Result: No Definite Risk - Focused Exam Vital Signs: Vital Signs Temp Pulse Resp BP Pulse Ox 05/02/21 16:20 98.6 F 89 16 133/62 99
== END 2021-05-02 18:22 | disposition home or self-care (01) ==
LOC: MW.ED 14:52
DX: B34.9 Viral infection, unspecified (principal); Z72.0 Tobacco use; Z91.040 Latex allergy status; Z20.822 Contact with and (suspected) exposure to COVID-19
CPT/HCPCS: 87804; 99283; U0002

== ENCOUNTER 2022-04-13 08:00 | Observation (INO) | payer BC ==
[2022-03-08 15:55] LABS: POTASSIUM,K 3.4 mmol/L (3.5-5.1)
[~2022-04-13 08:00] MED LIST: Bupivacaine 0.25% 30 ML SDV ONE; Bupivacaine 0.25%/EPINEPHrine 1:200,000 10 ML SDV ONE; Bupivacaine 0.5% 30 ML SDV ONE; Dexamethasone 4 MG/ML 5 ML MDV ONE; Fluorescein 5 ML Vial ONE; Gabapentin 300 MG Cap ONE; Lactated Ringers 1,000 ML IV ONE; Lidocaine 2% 100 MG/5 ML Syringe ONE; Magnesium Sulfate (4.06 MEQ/ML) 5 GM/10 ML SDV ONE; Methylene Blue 50 MG/10 ML Ampule ONE; Morphine Sulfate 10mg/ml SDV ONE; Ondansetron 4 MG/2 ML SDV ONE; Rocuronium Bromide 50 MG/5 ML Syringe ONE; Scopolamine 1.5 MG Transdermal Patch ONE; Sodium Chloride 0.9% 10 ML Syringe FLUSH PRN; Sodium Chloride 0.9% 2.5 ML Syringe FLUSH PRN; Sodium Chloride 0.9% 20 ML SDV IV PRN; Sugammadex Sodium 200 MG/2 ML VIAL ONE; Vasopressin 20 Units/1 ML MDV ONE; ceFAZolin 2 GM in Premix Bag 1 BAG IV ONE; propofoL 100 ML ONE
[2022-04-13] MEDS ORDERED: Phenylephrine HCl In 0.9% NaCl 1 MG/10 ML Vial ONE (08:12)
[2022-04-13] MEDS ORDERED: Lidocaine 2% 5 ML SDV ONE (08:12)
[2022-04-13] MEDS ORDERED: Ondansetron 4 MG/2 ML SDV ONE ×2 (08:12→09:44)
[2022-04-13] MEDS ORDERED: fentaNYL 100 MCG/2 ML SDV ONE (09:07)
[2022-04-13] MEDS ORDERED: propofoL 100 ML ONE (09:25)
[2022-04-13] MEDS ORDERED: Tranexamic Acid 1,000 MG/10 ML Vial ONE ×2 (09:37→09:44)
[2022-04-13] MEDS ORDERED: HYDROmorphone 1 MG/ML Syringe ONE (10:50)
[2022-04-13] MEDS ORDERED: Dextrose 5%-Lactated Ringers 1,000 ML IV SCH ×2 (11:30→19:45)
[2022-04-13] MEDS ORDERED: Ondansetron 4 MG/2 ML SDV IVPUSH PRN (19:41)
[2022-04-13] MEDS ORDERED: Promethazine 25 MG/ML SDV IM PRN (19:41)
[2022-04-13] MEDS ORDERED: Morphine 2 MG/ML SYRINGE IVPUSH PRN (19:42)
[2022-04-13] MEDS ORDERED: Acetaminophen/oxyCODONE 325-5 MG Tab PO PRN (19:45)
[2022-04-14 06:11] LABS: POTASSIUM,K 4.1 mmol/L (3.5-5.1)
== END 2022-04-14 10:05 | disposition home or self-care (01) ==
LOC: MW.SDS 08:00 → MW.MS 14:00
PROVIDERS: ADMIT Obstetrics & Gynecology; ATTEND Obstetrics & Gynecology
DX: N87.9 Dysplasia of cervix uteri, unspecified (principal); N72 Inflammatory disease of cervix uteri; N73.6 Female pelvic peritoneal adhesions (postinfective); R30.0 Dysuria; F17.210 Nicotine dependence, cigarettes, uncomplicated; Z79.899 Other long term (current) drug therapy; Z98.890 Other specified postprocedural states
CPT/HCPCS: 36415; 49322; 58550; 80048; 84703; 85025; 85027; 86850; 86900; 86901; A9270; G0378; J0131; J0690; J1100; J1170; J2270; J2405; J2704; J3010; J3475; J3490; J7030; J7120; J7121; 00944; 64488